=== PATIENT | male | born 1990 | race Caucasian/White ===

== ENCOUNTER 2017-11-17 19:59 | Emergency (ER) | payer MEDICAID ==
[~2017-11-17] VITALS: Ht 167.6 cm; Wt 77.2 kg
[~2017-11-17 19:59] MED LIST: CHLO473M2 PO
[2017-11-17 21:21] LABS: CLARITY,URINE CLEAR (Clear); COLOR,URINE YELLOW (Yellow); GLUCOSE, URINE NEGATIVE (Neg); KETONES,URINE NEGATIVE (Neg); LEUKOCYTE ESTERASE ,URINE TRACE (Neg); NITRITES, URINE NEGATIVE (Neg); OCCULT BLOOD,URINE TRACE-INTACT (Neg); PROTEIN,URINE NEGATIVE (Neg); UROBILINOGEN,URINE 0.2 E.U/dL (0.2-1.0)
[2017-11-17 21:29] LABS: UA COLLECTION TYPE CLN CATCH MIDSTREAM
[2017-11-17 21:30] LABS: BACTERIA,URINE NONE SEEN /HPF (Neg); RBC,URINE 0-2 /HPF (0-2); SQUAMOUS EPITHELIAL CELL,UR FEW /LPF (FEW); WBC,URINE 0-4 /HPF (0-4)
[2017-11-17] MEDS ORDERED: ibuprofen tablet 400 MG TABLET PO ONE (23:35)
[2017-11-17] MEDS ORDERED: bacitracin 15gm ointment TP ONE (23:35)
[2017-11-17 23:56] VITALS: BP 128/79
== END 2017-11-17 23:58 | disposition home or self-care (01) ==
LOC: ER 20:00
DX: S30.812A Abrasion of penis, initial encounter (principal); X58.XXXA Exposure to other specified factors, initial encounter; Y93.89 Activity, other specified; Y92.89 Other specified places as the place of occurrence of the external cause; Y99.8 Other external cause status
CPT/HCPCS: 81001; 87088; 99284

== ENCOUNTER 2020-04-23 20:33 | Emergency (ER) | payer MEDICAID ==
[~2020-04-23] VITALS: Ht 167.6 cm; Wt 92.7 kg
[2020-04-23 21:12] VITALS: BP 124/85
== END 2020-04-23 22:53 | disposition home or self-care (01) ==
LOC: ER 20:34
DX: S93.621A Sprain of tarsometatarsal ligament of right foot, initial encounter (principal); M79.671 Pain in right foot; M79.89 Other specified soft tissue disorders; F12.90 Cannabis use, unspecified, uncomplicated; Z79.899 Other long term (current) drug therapy; X58.XXXA Exposure to other specified factors, initial encounter; Y93.89 Activity, other specified; Y92.89 Other specified places as the place of occurrence of the external cause; Y99.8 Other external cause status
CPT/HCPCS: 73630; 99283